=== PATIENT | female | born 1995 | race Caucasian/White ===

== ENCOUNTER 2021-04-27 12:08 | Outpatient (CLI) | payer OTHER, SELFPAY ==
--- NOTE | ~2021-04-27 | US_ITS ---
EXAMINATION: US pelvic complete w TV DATE: 04/27/2021 12:37 INDICATION: Irregular menses TECHNIQUE: Multiple transabdominal and endovaginal sonographic images of the pelvis were obtained. COMPARISON: None. FINDINGS: The uterus measures 8.5 x 4.2 x 5.0 cm. The endometrial complex measures 10 mm. The right o vary measures 3.3 x 2.6 x 1.8 cm. The left ovary measures 3.7 x 2.4 x 2.2 cm. There is normal vascula r flow in the ovaries. There is no free fluid in the pelvis. IMPRESSION: 1. No sonographic correlate for the patient's symptoms. Reviewed, dictated and finalized at location B.
== END 2021-04-27 12:09 | disposition home or self-care (01) ==
LOC: CHSIMG 12:11
PROVIDERS: PCP Family Medicine; Visit Provider Obstetrics & Gynecology
DX: N92.6 Irregular menstruation, unspecified (principal)
CPT/HCPCS: 76830; 76856

== ENCOUNTER 2022-01-25 19:01 | Outpatient (CLI) | payer OTHER, SELFPAY | END 2022-01-25 19:43 | disposition home or self-care (01) | PROVIDERS: PCP Family Medicine; Visit Provider Obstetrics & Gynecology | DX: O42.90 Premature rupture of membranes, unspecified as to length of time between rupture and onset of labor, unspecified weeks of gestation (principal); Z3A.00 Weeks of gestation of pregnancy not specified | CPT/HCPCS: 84112 ==

== ENCOUNTER 2022-02-03 12:30 | Inpatient (IN) | payer OTHER, SELFPAY ==
[2022-02-03] VITALS (61 sets, daily range): BP systolic 98–133; BP diastolic 53–76; PULSE 74–94; RESP 18; TEMP 36.6–37.1; O2SAT 98–100; BMI 36.9
--- NOTE | 2022-02-03 13:15 | LDADM ---
This patient, Kimberly Anderson, was admitted to Labor/Delivery/Recovery 105 on 02/03/22 at 12:30. Plans for labor, pain management and were discussed with patient. Patient/family oriented to hospital policies and general routines including ID bracelet, bed and alarms, visiting hours, pain management, procedures, bathroom and other care routines, personal items, smoking policy, room service/diet and guest tray routines, infant security routines, and visiting hours. Patient/Family are encouraged to report perceived risks to care and to ask questions if they do not understand what they are told or what they should do. See OBIX for further documentation.
[2022-02-03 13:36] LABS: Basophils Percent Auto 0.2 % (0.2-1.2); Eosinophils Absolute Auto 0.1 K/mm3 (0-0.3); Eosinophils Percent Auto 0.7 % (0-4.4); Hematocrit 36.6 % (37.0-47.0); Hemoglobin 11.8 g/dL (12.0-15.0); Immature Granulocyte Absolute 0.08 K/mm3 (0.00-0.031); Lymphocytes Absolute Auto 1.59 K/mm3 (0.9-3.2); Lymphocytes Percent Auto 19.6 % (18.3-44.2); Mean Corpuscular HGB Conc 32.2 g/dl (32-36); Mean Corpuscular Hemoglobin 27.6 pg (26-34); Mean Corpuscular Volume 85.5 fl (80-100); Mean Platelet Volume 12.1 fl (7.4-10.4); Monocytes Absolute Auto 0.5 K/mm3 (0.1-0.6); Monocytes Percent Auto 6.5 % (2.6-8.5); Neutrophils Absolute Auto 5.8 K/mm3 (1.3-6.7); Platelet Count Result 157 k/mm3 (150-375); Red Blood Count 4.28 M/mm3 (4.2-5.4); Red Cell Distribution Width 13.7 % (11.5-14.5); White Blood Count 8.1 K/mm3 (4.5-10.0)
[2022-02-03] MEDS: AMPICILLIN 2 GM/NS 100 ML 2 GM/100 ML BAG IVPB (13:37)
[2022-02-03] MEDS: LACTATED RINGERS 1,000 ML 125 ML IV CONT (13:37)
--- NOTE | 2022-02-03 13:53 | PM.IMHP ---
H&P: HPI History of Present Illness Date/Time: 02/03/22 13:53 Kimberly is a 26yo @ 39.0wks (DASHA 02/10/22) who presented to L&D with rupture of membranes, clear @ 0930. She is feeling good movements. No regular contractions. No VB. She has had regular care. Her is complicated by: - GBS positive - H/o FAVD due to persistent OP position w/ large sulcal lacerations - Obesity Chief Complaint: leakage of fluid Review of Systems Review of Systems: All systems reviewed & are unremarkable except as noted in HPI and below (HPI) [facility] Family History Family History Father Hypertension Diabetes mellitus Grandparent Diabetes mellitus Hypertension Grandparent Hypertension Social History Social History Substance use: never Spiritual care concerns: No Meds Home Medications and Allergies Home Medications Medication Instructions Recorded Confirmed Type vitamin PO DAILY 12/19/21 12/19/21 History aspirin 81 mg tablet,delayed 81 mg PO DAILY 12/19/21 12/19/21 History release Allergies Allergy/AdvReac Type Severity Reaction Status Date / Time No Known Allergies Allergy Verified 01/23/22 17:28 Vital Signs Vital Signs - 24 hr 02/03/22 13:26 Pulse Rate 87 Blood Pressure 127/67 Exam Const: General: cooperative, comfortable and no acute distress Nutritional Appearance: obese Resp: Effort & Inspection: normal respiratory effort Cardio: Rate: regular rate GI: GI Palp: No abdominal tenderness and Yes Soft to palpation : Other: FHT's: 140's/ mod asia/ + accels/ no decels - cat 1 TOCO: irritability Cervix: 4/60/-2 Membranes: SROM, clear 0930 Presentation: cephalic H&P: Results Labs Labs: Short CBC 02/03/22 Range/Units 13:24 WBC 8.1 (4.5-10.0) K/mm3 Hgb 11.8 L (12.0-15.0) g/dL Hct 36.6 L (37.0-47.0) % Plt Count 157 (150-375) k/mm3 Assessment and Plan Assessment and plan (1) Rupture of membranes with clear amniotic fluid: Status: Acute (2) : Qualifiers: Weeks of gestation: 39 weeks Qualified Code(s): Z3A.39 - 39 weeks gestation of Code(s): Z34.90 - Encounter for supervision of normal , unspecified, unspecified trimester Status: Acute Additional Plan - Admit to L&D due to ROM at term; will start pitocin augmentation for adequate contractions - Ampicillin for GBS ppx - Continuous monitoring; currently reassuring - Anesthesia consult PRN pain
[2022-02-03] MEDS: OXYTOCIN 30 UNITS/NS 500 ML 30 UNITS/500 ML BAG IV CONT (13:57)
--- NOTE | 2022-02-03 14:02 | WPDHPUPDATE1 ---
History and Physical Update Update Date/Time: 02/03/22 14:02 History and Physical has been reviewed, including an updated exam of the patient. There are NO changes in the patient's condition. Risks, benefits, and alternatives have been discussed and questions answered. Patient agrees to proceed with procedure.
[2022-02-03] MEDS: AMPICILLIN 1 GM/NS 50 ML 1 GM/50 ML BAG IVPB ×2 (17:26→21:33)
[2022-02-04] VITALS (105 sets, daily range): BP systolic 60–136; BP diastolic 26–72; PULSE 70–112; RESP 16; TEMP 36.4–37.3; O2SAT 97–100
[2022-02-04] MEDS: LACTATED RINGERS 1,000 ML 125 ML IV CONT ×2 (01:32→04:20)
[2022-02-04] MEDS: AMPICILLIN 1 GM/NS 50 ML 1 GM/50 ML BAG IVPB ×2 (01:33→06:15)
--- NOTE | 2022-02-04 03:08 | WPDANESEPP ---
Anes - Eval Pre Procedure Date/Time: 02/04/22 03:08 Pre Op Diagnosis: Rupture of Membranes Patient Data Age: 26 Gender: F Height: 1.75 m Weight: 113.5 kg Last Vital Signs Temp 98.3 F 02/04/22 01:29 Pulse 78 02/04/22 03:01 Resp 18 02/03/22 13:30 BP 133/65 02/04/22 03:01 Pulse Ox 98 02/03/22 20:59 Allergies Allergy/AdvReac Type Severity Reaction Status Date / Time No Known Allergies Allergy Verified 01/23/22 17:28 Home Medications Medication Instructions Recorded Confirmed Type aspirin 81 mg tablet,delayed 81 mg PO DAILY 12/19/21 02/03/22 History release PNV cmb#95-ferrous fumarate-FA 1 tablet PO DAILY 02/03/22 02/03/22 History [] Laboratory Tests 02/03/22 02/03/22 02/03/22 13:24 13:24 13:24 WBC 8.1 K/mm3 K/mm3 (4.5-10.0) RBC 4.28 M/mm3 M/mm3 (4.2-5.4) Hgb 11.8 g/dL L g/dL (12.0-15.0) Hct 36.6 % L % (37.0-47.0) MCV 85.5 fl fl (80-100) MCH 27.6 pg pg (26-34) MCHC 32.2 g/dl g/dl (32-36) RDW 13.7 % % (11.5-14.5) Plt Count 157 k/mm3 k/mm3 (150-375) MPV 12.1 fl H fl (7.4-10.4) Immature Gran % (Auto) 1.0 % H % (0-0.5) Neut % (Auto) 72.0 % % (45.5-73.1) Lymph % (Auto) 19.6 % % (18.3-44.2) [place] % (Auto) 6.5 % % (2.6-8.5) Eos % (Auto) 0.7 % % (0-4.4) Baso % (Auto) 0.2 % % (0.2-1.2) Lymph # (Auto) 1.59 K/mm3 K/mm3 (0.9-3.2) [place] # (Auto) 0.5 K/mm3 K/mm3 (0.1-0.6) Eos # (Auto) 0.1 K/mm3 K/mm3 (0-0.3) Baso # (Auto) 0.0 K/mm3 K/mm3 (0.0-0.1) Abs Immat Gran (auto) 0.08 K/mm3 H K/mm3 (0.00-0.031) Absolute Neuts (auto) 5.8 K/mm3 K/mm3 (1.3-6.7) Absolute Nucleated RBC 0.0 K/mm3 K/mm3 (0.0-0.012) Nucleated RBC % 0.0 % % (0.0-0.2) RPR Pending Blood Type B Positive Antibody Screen Negative Patient hx anesthesia problems: none Family hx anesthesia problems: none Results Review: All pre-operative results and documents have been reviewed as part of the pre-operative evaluation. [facility] Past Medical History Medical History Anemia Bipolar 1 disorder Morbid obesity Family History Family History Father Hypertension Diabetes mellitus Grandparent Diabetes mellitus Hypertension Grandparent Hypertension Social History Social History Smoking status: Never smoker Second hand tobacco smoke exposure: No Substance use: never Spiritual care concerns: No Exam Day of Procedure 02/04/22 03:08 Patient weight: super morbidly obese Heart: regular rate and rhythm Airway: Mallampati scale class II Neurological: alert and oriented
[2022-02-04] MEDS: OXYTOCIN 30 UNITS/NS 500 ML 30 UNITS/500 ML BAG 125 UNITS IV CONT (08:21)
--- NOTE | 2022-02-04 08:36 | P.PCNOB_ITS ---
OB - Delivery Note Procedure Delivery date: 02/04/22 Events: Positive Group B Strep (GBS) Intrapartal Events: Other (protracted labor) Delivery augmentation: Pitocin Delivery monitor: External FHT and Internal Uterine Route of delivery: Laceration Description: None Quantitative Blood Loss (ml): 200 Anesthesia type: Epidural Disposition: Floor Baby Date of : 02/04/22 Time of : 07:58 Weeks of gestation at delivery: 39 (.1) Infant gender: Female Weight (pounds): 7 Weight (ounces): 5 presentation: vertex position: Left Occiput Anterior Placenta delivery description: Expressed Cord Vessel Description: 3 Vessels, Clamped/Cut and Delayed Cord Clamping score one minute: 8 score five minutes: 9 Narrative: Kimberly progressed to complete dilation with strong desire to push. She pushed for approximately 2 contractions and delivered the head over intact perineum. Baby presented compound with the left hand by the face. She easily delivered the infant's shoulders and body without complication. The infant was immediately placed skin to skin and heads spontaneous cry. The mouth was bulb s uctioned. Delayed cord clamping was performed. The umbilical cord was then clamped and cut. A segment of the cord was collected for cord gases. The remaining cord blood was collected for typing. With Pitocin running and gentle downward traction on the cord, the placenta delivered without complications. A bimanual massage was performed and good uterine tone with minimal bleeding was noted. Patient was examined and no lacerations were identified. Sponge, lap, instrument, needle counts were correct at the end of the procedure. Mom and baby were left bonding in the birthing suite in a stable condition. [facility] Delivery Billing Delivery Delivery: Delivery Charge
[2022-02-04 08:51] LABS: Rapid Plasma Reagin Non-Reactive (NonReactive)
[2022-02-04] MEDS: WITCH HAZEL 40 PADS 1 PAD TOPICAL (10:24)
[2022-02-04] MEDS: MULTIVIT/MIN/PREN/FOL AC/IRON TABLET 1 TAB PO (11:19)
[2022-02-04] MEDS: IBUPROFEN 600 MG TABLET PO ×2 (11:19→20:04)
--- NOTE | 2022-02-04 11:22 | OBPPTRN ---
1050-Patient transferred to post room #286 via wheelchair and use of Blanca Steady. Support person present. Oriented to unit, room, information board, rooming in, admission packet and security measures. Patient verbalizes understanding.
--- NOTE | 2022-02-04 14:43 | PC.NURSE ---
[id number] Introductions were made and RN consulted with patient to assess needs related to . Mother led conversation with her experience with feeding baby so far and her desires are to pump and feed her at home. Mother works well with her infant and has baby skin to skin between her breasts. Reviewed good handwashing when working with infant, breast, nipples and how to protect the nipples with a deep latch. Encouraged understanding the benefits of skin to skin, responding to feeding cues, frequencies of feeding 8-12 times in 24 hours (approximately 2-3 hours), duration of feedings, milk production, intake/output feeding sheet and signs of adequate intake. Discussed stimulating infant with skin to skin, hand expressing colostrum, touch and talking to to encourage eating at the breast. Mother demonstrates information of hand expression. Infant is sleepy and not showing feeding cues. While was on mother RN syringe fed 2 ml of hand expressed human milk. Reviewed positioning and alignment, supporting breast, off-centered (asymmetrical latch) and leading with the chin with big open wide gape. Resources used to facilitate learning were used from the visual handout/mom and baby guide. Mother voiced understanding responding to feeding cues, may need to stimulating infant approximately 2-3 hours from the start of the last feeding, calling for assistance if the does not latch or there discomfort . Reported to primary RN.
[2022-02-05] VITALS: BP 122/64; PULSE 74; RESP 18; TEMP 36.6
[2022-02-05 03:00] VITALS: BP 124/56; PULSE 74; RESP 16; TEMP 36.6
[2022-02-05 04:51] LABS: Hematocrit 36.4 % (37.0-47.0); Hemoglobin 11.6 g/dL (12.0-15.0)
--- NOTE | 2022-02-05 07:01 | PM.OBPNVD ---
OB - PN: Subj Subjective Date/time seen: 02/05/22 07:01 Narrative: PPD#1 Kimberly reports doing well today. 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 Her pain is controlled, mild cramping with pumping. She is tolerating regular diet, voiding, passing gas, and ambulating without issues. She is breast feeding and supplementing. OB - PN: Obj Data Labs CBC & Chem 7: 02/05/22 04:03 Labs: Laboratory Results - last 24 hr 02/03/22 02/05/22 13:24 04:03 Hgb 11.6 L Hct 36.4 L RPR Non-reactive OB - PN A/P Assessment and Plan (1) Normal vaginal delivery of second : Code(s): O80 - Encounter for full-term uncomplicated delivery Status: Acute Plan day: 1 Plan: routine care and discharge home Comments: - Pelvic rest; take meds as prescribed - ER return precautions: fever, n/v/abd pain, bleeding, HTN Time Spent With Patient Time: Total time spent is greater than 50% in coordination of care (as documented) at patient's floor/unit and/or counseling patient: Review of Systems Constitutional: Constitutional: Denies chills, Denies fever(s) and Denies headache(s) Eyes: Eyes: Denies change in vision ENT: Denies dizziness and Denies headache(s) Cardiovascular: Cardiovascular: Denies chest pain, Denies palpitations and Denies dyspnea Respiratory: Respiratory: Denies cough and Denies dyspnea Gastrointestinal: Gastrointestinal: Denies nausea and Denies vomiting Neurologic: Denies dizziness and Denies headache(s) Endocrine: Endocrine: Denies palpitations Exam Const: General: cooperative, comfortable and no acute distress Nutritional Appearance: obese Orientation/consciousness: patient oriented x3 Resp: Effort & Inspection: normal respiratory effort Auscultation: clear to auscultation bilaterally Cardio: Rate: regular rate GI: Inspection: non-distended GI Palp: No abdominal tenderness and Yes Soft to palpation Auscultation: normal bowel sounds : Other: fundus firm Skin: General skin exam: normal color Neuro: General: patient oriented x3 Extrem: General: normal to inspection Psych: Appearance: grossly normal Affect: normal affect Attitude: cooperative
[2022-02-05] MEDS: WITCH HAZEL 40 PADS 1 PAD TOPICAL (07:26)
[2022-02-05] MEDS: BENZOCAINE 20% AER SPR (*SP) 56 GM CAN 1 SPRAY TOPICAL (07:26)
[2022-02-05] MEDS: DOCUSATE SODIUM 100 MG CAPSULE PO (07:27)
[2022-02-05] MEDS: MULTIVIT/MIN/PREN/FOL AC/IRON TABLET 1 TAB PO (07:27)
[2022-02-05] MEDS: IBUPROFEN 600 MG TABLET PO (07:27)
[2022-02-05] MEDS: LANOLIN (LANSINOH) 7.5 GM CREAM 1 APPLIC TOPICAL (07:27)
--- NOTE | 2022-02-05 07:32 | WPDANLDNPN2 ---
Anes-Prog Note L&D-Neuraxial Date/Time: 02/05/22 07:32 Patient feedback: Patient satisfied with post-operative pain management.
[2022-02-05 08:00] VITALS: BP 115/73; PULSE 68; RESP 18; TEMP 36.3
--- NOTE | 2022-02-05 08:49 | PC.NURSE ---
Self care and infant care discharge instructions given including follow up visit date and time. Mother verbalized understanding. No questions or concerns voiced. Very pleasant and cooperative. FOB at side.
--- NOTE | 2022-02-05 09:12 | PC.NURSE ---
0720 - Report received from primary RN that mother is pumping and feeding infant breastmilk and supplementing with formula.
[2022-02-06 11:25] VITALS: BP 133/77; PULSE 70; RESP 20; TEMP 37.1; O2SAT 100
--- NOTE | 2022-02-06 11:38 | PM.OBDSVD ---
DS: Admitting Diagnosis Discharge Date 02/05/22 Admitting Diagnosis PROM DS: Discharge Diagnosis Discharge Diagnosis (1) Normal vaginal delivery of second : Code(s): O80 - Encounter for full-term uncomplicated delivery Status: Acute (2) Rupture of membranes with clear amniotic fluid: Status: Acute OB - DS: Summary OB Procedures : Ultrasound OB Procedures Intrapartum: Spontaneous Vag Delivery OB Procedures: : None Peripartum Data Delivery Method: Natural Vaginal Laceration Description: None complications: none [place] 1: Gender: Female Disposition of : home Status at Discharge Functional status at discharge: independent ambulation Overall status at discharge: patient is back to baseline Time Spent with Patient Time attestation: Total time spent providing and/or coordinating discharge services: Time spent: Less than 30 minutes Exam Const: General: cooperative, comfortable and no acute distress Orientation/consciousness: patient oriented x3 Resp: Effort & Inspection: normal respiratory effort Auscultation: clear to auscultation bilaterally Cardio: Rate: regular rate GI: Inspection: non-distended GI Palp: No abdominal tenderness and Yes Soft to palpation Auscultation: normal bowel sounds : Other: fundus firm Skin: General skin exam: normal color Neuro: General: patient oriented x3 Extrem: General: normal to inspection Psych: Appearance: grossly normal Affect: normal affect Attitude: cooperative Discharge Plan Discharge Attending physician on discharge: Hina Granados Discharging Clinician: Hina Granados Anticipated Discharge Date/Time: 02/05/22 11:00 Patient Disposition: Home, Self-Care Activity: may shower and pelvic rest Diet: regular Discharge Instructions: Education: Mom and Baby Guide Given to: Mother Follow-Up: Call your delivering provider's office for an appointment to be seen in: 4 Weeks Mom and baby should come to the [facility] for the follow-up appointment. Appointment Date/Time: Sunday, February 06, 2022 at 11:00 am What to expect at your follow-up visit: Call [phone] if you are unable to keep your appointment time. BREAST CARE: * Wear a snug supportive bra. * For engorgement discomfort: Breast Feeding: * Apply warm moist washcloths * Express milk as needed to relieve engorgement * Wear loose clothing Bottle Feeding: * May apply ice packs * For sore nipples: * Identify correct latch-on * Apply warm moist washcloths before and after nursing * Air dry nipples after nursing * May apply Lansinoh cream to nipples EPISIOTOMY/PERINEAL CARE: * Until bleeding stops, use your lois bottle after urinating * Change your pad frequently throughout the day ACTIVITY: * Rest as much as possible. * Do not exercise or lift anything heavier than your baby (such as laundry or other children.) * Avoid stairs or driving as much as possible. * Do not put anything into the vagina. No douching, tampons, or sexual activity until seen by physician. NOTIFY PHYSICIAN IF YOU HAVE ANY QUESTIONS OR IF ANY OF THE FOLLOWING SYMPTOMS OCCUR: * If your vaginal bleeding becomes foul smelling. * If your vaginal bleeding becomes more heavy than a period or if your bleeding changes from pink to bright red. However, you may pass an occasional walnut-sized clot once or twice for the first week . * If you experience a sharp, shooting pain in you calves. * If you discover a hard, reddened area on your breast or if you experience flu-like symptoms. DIET: * Eat regular, well-balanced meals. * Drink plenty of fluids daily. If , drink to thirst. Patient Instructions: Antibiotic Form Stand Alone Forms: General Discharge Information Follow-up/Referrals
== END 2022-02-05 11:25 | disposition home or self-care (01) | DRG 560 ==
LOC: ANHLDR 12:56 → ANHOB2 02-04 11:02
PROVIDERS: Admitting Provider Obstetrics & Gynecology; PCP Family Medicine; Visit Provider Obstetrics & Gynecology
DX: O42.92 Full-term premature rupture of membranes, unspecified as to length of time between rupture and onset of labor (principal); Z37.0 Single live birth; Z3A.39 39 weeks gestation of pregnancy; O99.824 Streptococcus B carrier state complicating childbirth; O76 Abnormality in fetal heart rate and rhythm complicating labor and delivery; O99.214 Obesity complicating childbirth; E66.01 Morbid (severe) obesity due to excess calories
CPT/HCPCS: 36415; 84112; 85014; 85018; 85025; 86592; 86850; 86900; 86901; A9270; J0290; J2590; J2795; J7120

== ENCOUNTER 2023-09-02 08:25 | Emergency (ER) | payer OTHER, SELFPAY ==
[2023-09-02 08:27] VITALS: BP 119/59; PULSE 76; RESP 18; TEMP 36.9; O2SAT 100
[2023-09-02 09:01] LABS: Basophils Percent Auto 0.3 % (0.2-1.2); Eosinophils Absolute Auto 0.1 K/mm3 (0-0.3); Eosinophils Percent Auto 1.3 % (0-4.4); Hematocrit 40.6 % (37.0-47.0); Hemoglobin 13.3 g/dL (12.0-15.0); Immature Granulocyte Absolute 0.03 K/mm3 (0.00-0.031); Immature Granulocyte Percent A 0.4 % (0-0.5); Lymphocytes Absolute Auto 1.68 K/mm3 (0.9-3.2); Lymphocytes Percent Auto 22.1 % (18.3-44.2); Mean Corpuscular HGB Conc 32.8 g/dl (32-36); Mean Corpuscular Hemoglobin 27.6 pg (26-34); Mean Corpuscular Volume 84.2 fl (80-100); Mean Platelet Volume 11.7 fl (7.4-10.4); Monocytes Absolute Auto 0.4 K/mm3 (0.1-0.6); Monocytes Percent Auto 5.1 % (2.6-8.5); Neutrophils Absolute Auto 5.4 K/mm3 (1.3-6.7); Neutrophils Percent Auto 70.8 % (45.5-73.1); Platelet Count Result 169 k/mm3 (150-375); Red Blood Count 4.82 M/mm3 (4.2-5.4); Red Cell Distribution Width 13.8 % (11.5-14.5); White Blood Count 7.6 K/mm3 (4.5-10.0)
[2023-09-02 09:11] LABS: Anion Gap 7 mmol/L (8-16); Blood Urea Nitrogen 7 mg/dL (7-17); Calcium 8.9 mg/dL (8.4-10.2); Carbon Dioxide 20 mmol/L (22-30); Chloride 107 mmol/L (98-107); Estimated CRCL calculation 222 ml/min; Estimated Glomerular Filt Rate > 60; Glucose 90 mg/dL (65-110); Potassium 3.7 mmol/L (3.4-5.0); Sodium 134 mmol/L (137-145)
--- NOTE | 2023-09-02 09:49 | ED.PREGNANCY ---
HPI - General Chief complaint: Vaginal Bleeding Stated complaint: 14 wks preg, spotting Time Seen by Provider: 09/02/23 08:32 History of Present Illness HPI Narrative: Patient around 14 weeks , G3, P2, with confirmed IUP on ultrasound, presenting with vaginal bleeding and cramping, several days ago she had had some spotting, and resolved, then today started noticing some spotting when she wipes, she told her DESIGN AND SALES CONSULTANT who told her to come in. Related Data Home Medications Medication Instructions Recorded Confirmed vits no.126-ferrous fum tablet PO DAILY 07/15/23 08/13/23 28 mg iron-folic acid 800 mcg tablet (Classic ) Allergies Allergy/AdvReac Type Severity Reaction Status Date / Time No Known Allergies Allergy Verified 09/02/23 08:35 Review of Systems Review of Systems: CONST: No fever. HEENT: No sore throat C/V: No chest pain RESP: No trouble breathing GI: Lower abdominal cramping : Vaginal bleeding M/S: No joint pain. SKIN: No rash. NEURO: [No headache or focal numbness or weakness] PSYCH: [No depression] [facility] Past Medical History Medical History Anemia Bipolar 1 disorder Encounter for insertion of mirena IUD (06/04/22) mirena iud insertion Encounter for screening examination for sexually transmitted disease IUD migration removed Morbid obesity Family History Family History Father Hypertension Diabetes mellitus Grandparent Diabetes mellitus Hypertension Grandparent Hypertension Social History Social History Smoking status: Never smoker Second hand tobacco smoke exposure: No Alcohol intake: never Substance use: never Substance use type: does not use Lack of Transportation: No Lack of Food: Never True Current Housing: I Have Housing Concerned About Future Housing: No Difficulty Paying Gas/Electric Bills: No Difficulty Paying for Meds: No Currently Unemployed: No Education: High School Diploma/GED Difficulty w/ Childcare or Family Care: No Living arrangements: with family Occupation/Education: unemployed Gender identity (if verbalized by the patient): Female Sexual Orientation (if Verbalized by the Patient): Straight or Heterosexual Spiritual care concerns: No Exam Narrative: EXAMINATION OF ORGAN SYSTEMS/BODY AREAS: Constitutional: Vital signs per nursing GENERAL:[No acute distress, non-toxic appearing.] HEAD: Normal with no signs of head trauma. EYES: EOMI, conjunctiva normal ENT: Hearing grossly intact LUNGS: Nonlabored breathing. HEART: [Regular rate and rhythm] ABD: [Soft], [nontender to palpation] : Scant/no blood at vault EXT: Normal range of motion SKIN: [No rashes or lesions.] NEURO: [Alert and oriented x 3. No gross focal sensory or strength deficits.] PSYCH: Normal affect Course Vital Signs Vital signs: Vital Signs Temperature 98.5 F 09/02/23 08:27 Pulse Rate 76 09/02/23 08:27 Respiratory Rate 18 09/02/23 08:27 Blood Pressure 119/59 L 09/02/23 08:27 Pulse Oximetry 100 09/02/23 08:27 Temperature 98.5 F 09/02/23 08:27 Pulse Rate 73 09/02/23 10:00 Respiratory Rate 18 09/02/23 10:00 Blood Pressure 134/71 09/02/23 10:00 Pulse Oximetry 98 09/02/23 10:00 MDM - OB/Uterine Contractions MDM Narrative Medical decision making narrative: 27 G3, P2 presenting with cramping and bleeding, on exam she is well-appearing, no overt hemorrhage, I did perform a bedside ultrasound and noted intrauterine with heart rate 150. Rh+ here, beta quant obtained, strict return precautions provided to patient and she is stable for discharge at this time Lab Data 09/02/23 08:50 09/02/23 08:50 Labs: Lab Results 09/02/23 Range/Units
[2023-09-02 10:00] VITALS: BP 134/71; PULSE 73; RESP 18; O2SAT 98
== END 2023-09-02 10:01 | disposition home or self-care (01) ==
PROVIDERS: Emergency Provider Emergency Medicine; PCP Obstetrics & Gynecology
DX: O20.0 Threatened abortion (principal); O99.212 Obesity complicating pregnancy, second trimester; E66.01 Morbid (severe) obesity due to excess calories; Z86.2 Personal history of diseases of the blood and blood-forming organs and certain disorders involving the immune mechanism; Z3A.14 14 weeks gestation of pregnancy
CPT/HCPCS: 36415; 80048; 84702; 85025; 85461; 86850; 86900; 86901; 99284

== ENCOUNTER 2024-01-09 17:22 | Observation (INO) | payer OTHER, SELFPAY ==
[2024-01-09] VITALS (85 sets, daily range): BP systolic 114–154; BP diastolic 50–80; PULSE 76–104; O2SAT 96–100; BMI 38.7
--- NOTE | ~2024-01-09 | US_ITS ---
EXAMINATION: US OB limited DATE: 01/09/2024 19:12 INDICATION: Fall. Third trimester. TECHNIQUE: Real-time ultrasound of the pelvis was performed. COMPARISON: Ultrasound 09/03/2023 FINDINGS: There is a single fetus in vertex presentation. The placenta is fundal. heart rate is 142 beat s per minute (bpm). The amniotic fluid index is 14.8 cm, which is normal. IMPRESSION: 1. Single living fetus in vertex presentation. 2. Normal placenta. Reviewed, dictated and finalized at location E. NT MANAGER
[2024-01-09] MEDS: TERBUTALINE SULFATE 1 MG/ML VIAL 0.25 MG SUB-Q (18:23)
--- NOTE | 2024-01-09 18:29 | LDADM ---
This patient, Kimberly Anderson, was admitted to OB Post 117 on 01/09/24 at 17:22. Plans for labor, pain management and were discussed with patient. Patient/family oriented to hospital policies and general routines including ID bracelet, bed and alarms, visiting hours, pain management, procedures, bathroom and other care routines, personal items, smoking policy, room service/diet and guest tray routines, infant security routines, and visiting hours. Patient/Family are encouraged to report perceived risks to care and to ask questions if they do not understand what they are told or what they should do. See OBIX for further documentation.
--- NOTE | 2024-01-09 18:29 | PC.NURSE ---
1803--Report to Dr. Watters re: Pt. fell at approx. 1400, landed on her bottom, but was holding her 3 y.o. who landed on pt's abdomen. Pt. denies vaginal bleeding and states she has felt movement since her fall. She states that she did have a small wet spot on her panties that may have been fluid or urine, she's not sure . Upon exam abdomen is soft and non-tender, but pt. is delroy every 2 minutes. Pt. states that she is feeling them in her back. Pt's blood type is B+ and BP also reported to Dr. Watters. Orders received for FFN, Rom plus, gentle cervical exam, u/s for placenta check, and labwork for PIH and abruption.
--- NOTE | 2024-01-09 18:35 | PC.NURSE ---
181--Report to Sagar Becerra RN to assume care of pt. at this time.
[2024-01-09 19:14] LABS: Basophils Percent Auto 0.1 % (0.2-1.2); Eosinophils Absolute Auto 0.1 K/mm3 (0-0.3); Eosinophils Percent Auto 0.7 % (0-4.4); Hematocrit 38.6 % (37.0-47.0); Hemoglobin 11.9 g/dL (12.0-15.0); Immature Granulocyte Absolute 0.07 K/mm3 (0.00-0.031); Immature Granulocyte Percent A 0.9 % (0-0.5); Mean Corpuscular HGB Conc 30.8 g/dl (32-36); Mean Corpuscular Hemoglobin 25.3 pg (26-34); Mean Corpuscular Volume 82.1 fl (80-100); Mean Platelet Volume 11.9 fl (7.4-10.4); Monocytes Absolute Auto 0.5 K/mm3 (0.1-0.6); Monocytes Percent Auto 6.5 % (2.6-8.5); Neutrophils Absolute Auto 5.3 K/mm3 (1.3-6.7); Neutrophils Percent Auto 64.8 % (45.5-73.1); Platelet Count Result 165 k/mm3 (150-375); Red Cell Distribution Width 16.9 % (11.5-14.5); White Blood Count 8.1 K/mm3 (4.5-10.0)
[2024-01-09 19:24] LABS: Alanine Aminotransferase 13 U/L (6-35); Albumin Level 3.3 g/dL (3.5-5.1); Alkaline Phosphatase 116 U/L (38-126); Anion Gap 8 mmol/L (8-16); Aspartate Amino Transferase 23 U/L (14-36); Bilirubin,Total 0.5 mg/dL (0.2-1.3); Blood Urea Nitrogen 7 mg/dL (7-17); Carbon Dioxide 19 mmol/L (22-30); Chloride 106 mmol/L (98-107); Estimated Glomerular Filt Rate > 60; Glucose 91 mg/dL (65-110); Potassium 3.1 mmol/L (3.4-5.0); Sodium 133 mmol/L (137-145); Uric Acid 2.2 mg/dL (2.5-7.5)
--- NOTE | 2024-01-09 19:26 | OBADM ---
This patient, Kimberly Anderson, admitted to the OB room OB Post 117 for observation. Patient/family oriented to hospital policies and general routines including ID bracelet, bed and alarms, visiting hours, pain management, procedures, bathroom and other care routines, personal items, smoking policy, room service/diet, and visiting hours. Patient/Family are encouraged to report perceived risks to care and to ask questions if they do not understand what they are told or what they should do.
--- NOTE | 2024-01-09 19:28 | PC.NURSE ---
Updated Dr. Watters on ultrasound report, SVE thick with 2 external OS with closed internal OS, negative ROM plus result, and HIP lab results. Other lab results still pending. VSS. No contractions are noted via TOCO and palpation and patient is reports contractions have resolved. FHT reactive and appropriate for gestational age with active movement present. Order to continue monitoring until 2300.
[2024-01-09 19:30] LABS: Fibrinogen 466 mg/dl (215-510); INR 1.1; Partial Thromboplastin Time 28.3 SECONDS (22.3-36.8); Prothrombin Time 14.3 Seconds (11.1-14.7)
[2024-01-09 19:46] LABS: Fetal Fibronectin Positive
[2024-01-09 20:19] LABS: Appearance Urine Cloudy (Clear); Bacteria Urine None Seen /hpf; Bilirubin Urine Negative (Negative); Blood Urine Negative (Negative); Color Urine Yellow (Yellow); Glucose Urine UA Negative (Negative); Ketones Urine 2+ mg/dL (Negative); Leukocyte Esterase Ur Trace LEU/UL (Negative); Need Manual Microscopic Reviewed; Nitrate Urine Negative (Negative); Non Pathogenic Casts 0-2; Protein Urine Negative (Negative); RBC Urine 0-2 /hpf (0-2); Specific Grav Ur 1.006 (1.001-1.035); Squamous Epithelial Cell Urine Occasional /hpf (Few); Urobilinogen Urine 0.2 mg/dL (<2.0); WBC Urine 0-5 /hpf
[2024-01-09 20:21] LABS: Add Urine Microscopic? YES
[2024-01-09 20:25] LABS: Creatinine Urine 30.1 mg/dL; Total Protein Urine Random 13 mg/dL; Ur Ttl Prot Creatinine Ratio 0.43 mg/mg (0-0.20)
[2024-01-09] MEDS: NIFEdipine 10 MG CAPSULE PO (20:57)
[2024-01-09] MEDS: DEXTROSE 5%/LACTATED RINGERS 1,000 ML 999 ML IV CONT (20:58)
[2024-01-10] VITALS: BP 128/56; PULSE 82; PULSE 88; O2SAT 97
[2024-01-10 00:05] VITALS: PULSE 87; O2SAT 96
--- NOTE | 2024-02-09 11:47 | P.PNOB_ITS ---
OB - Triage/Final Diagnosis Visit Information Comments/Additional reasons for admission: I have assessed the risk for this patient, Kimberly Anderson, and determined that she would benefit from observation care. Evaluation Laboratory results: Laboratory Tests 01/09/24 01/09/24 18:28 19:59 WBC 8.1 RBC 4.70 Hgb 11.9 L Hct 38.6 MCV 82.1 MCH 25.3 L MCHC 30.8 L RDW 16.9 H Plt Count 165 MPV 11.9 H Immature Gran % (Auto) 0.9 H Neut % (Auto) 64.8 Lymph % (Auto) 27.0 [place] % (Auto) 6.5 Eos % (Auto) 0.7 Baso % (Auto) 0.1 L Lymph # (Auto) 2.20 [place] # (Auto) 0.5 Eos # (Auto) 0.1 Baso # (Auto) 0.0 Abs Immat Gran (auto) 0.07 H Absolute Neuts (auto) 5.3 Absolute Nucleated RBC 0.0 Nucleated RBC % 0.0 PT 14.3 INR 1.1 APTT 28.3 Fibrinogen 466 Sodium 133 L Potassium 3.1 L Chloride 106 Carbon Dioxide 19 L Anion Gap 8 BUN 7 Creatinine 0.40 L Estim Creat Clear Calc Not Reportable Estimated GFR > 60 Glucose 91 Uric Acid 2.2 L Calcium 9.0 Total Bilirubin 0.5 AST 23 ALT 13 Alkaline Phosphatase 116 Total Protein 7.0 Albumin 3.3 L Urine Color Yellow Urine Appearance Cloudy H Urine pH 6.0 Ur Specific [place] 1.006 Urine Protein Negative Urine Glucose (UA) Negative Urine Ketones 2+ H Ur Blood (Man) Negative Urine Nitrate Negative Urine Bilirubin Negative Urine Urobilinogen 0.2 Add Ur Microanalysis Reviewed Leukocyte Esterase Rfl Trace H Urine RBC 0-2 Urine WBC 0-5 Ur Squamous Epith Cells Occasional Urine Bacteria None seen Urine Casts 0-2 U Random Total Protein 13 Urine Creatinine 30.1 Protein/Creat Ratio 2 0.43 H Fibronectin Positive KB Hemoglobin Negative Final Diagnosis (1) Status post fall: Code(s): Z91.81 - History of falling Status: Acute
== END 2024-01-10 00:26 | disposition home or self-care (01) ==
PROVIDERS: Admitting Provider Obstetrics & Gynecology; PCP Family Medicine; Visit Provider Obstetrics & Gynecology
DX: Z04.3 Encounter for examination and observation following other accident (principal); O26.893 Other specified pregnancy related conditions, third trimester; W19.XXXA Unspecified fall, initial encounter; Z3A.32 32 weeks gestation of pregnancy
CPT/HCPCS: 36415; 76815; 80053; 81001; 82570; 82731; 84156; 84550; 85025; 85384; 85460; 85610; 85730; 96372; A9270; G0378; G0379; J3105; J7121

== ENCOUNTER 2024-01-11 23:55 | Outpatient (NON) | payer OTHER, SELFPAY ==
[2024-01-11 00:10] VITALS: BMI 38.7
[2024-01-11 01:56] LABS: Total Volume 24 Hour Urine 2500 ml
[2024-01-11 02:04] LABS: Creatinine Urine 75.1 mg/dL
[2024-01-11 02:07] LABS: Total Protein Urine 24 Hr 275 mg/24hr (28-141); Total Protein Urine Random 11 mg/dL
[2024-01-11 02:11] LABS: Creatinine 24 Hour Urine 1.8 gm/24 (0.8-1.8); Total Volume 24 Hour Urine 2500 ml
== END 2024-01-11 23:57 | disposition home or self-care (01) ==
LOC: ANHOBOP 01-23 12:49
PROVIDERS: Obstetrics & Gynecology; PCP Family Medicine; Visit Provider Obstetrics & Gynecology
DX: O13.9 Gestational [pregnancy-induced] hypertension without significant proteinuria, unspecified trimester (principal); Z3A.00 Weeks of gestation of pregnancy not specified
CPT/HCPCS: 81050; 82570; 84156

== ENCOUNTER 2024-02-06 16:11 | Outpatient (CLI) | payer OTHER, SELFPAY ==
[2024-02-06] VITALS (7 sets, daily range): BP systolic 134–148; BP diastolic 64–77; PULSE 86–97
[2024-02-06 17:05] LABS: Basophils Percent Auto 0.3 % (0.2-1.2); Eosinophils Absolute Auto 0.1 K/mm3 (0-0.3); Eosinophils Percent Auto 0.7 % (0-4.4); Hematocrit 37.5 % (37.0-47.0); Hemoglobin 11.6 g/dL (12.0-15.0); Immature Granulocyte Absolute 0.03 K/mm3 (0.00-0.031); Immature Granulocyte Percent A 0.4 % (0-0.5); Lymphocytes Absolute Auto 1.53 K/mm3 (0.9-3.2); Lymphocytes Percent Auto 21.2 % (18.3-44.2); Mean Corpuscular HGB Conc 30.9 g/dl (32-36); Mean Corpuscular Volume 80.8 fl (80-100); Mean Platelet Volume 12.2 fl (7.4-10.4); Monocytes Absolute Auto 0.4 K/mm3 (0.1-0.6); Monocytes Percent Auto 5.3 % (2.6-8.5); Neutrophils Absolute Auto 5.2 K/mm3 (1.3-6.7); Neutrophils Percent Auto 72.1 % (45.5-73.1); Platelet Count Result 182 k/mm3 (150-375); Red Blood Count 4.64 M/mm3 (4.2-5.4); Red Cell Distribution Width 16.3 % (11.5-14.5); White Blood Count 7.2 K/mm3 (4.5-10.0)
[2024-02-06 17:09] LABS: Appearance Urine Cloudy (Clear); Bacteria Urine 4+ /hpf; Bilirubin Urine Negative (Negative); Blood Urine Negative (Negative); Color Urine Yellow (Yellow); Glucose Urine UA 1+ mg/dL (Negative); Ketones Urine 1+ mg/dL (Negative); Leukocyte Esterase Ur 1+ LEU/UL (Negative); Nitrate Urine Negative (Negative); Non Pathogenic Casts 0-2; Protein Urine Negative (Negative); RBC Urine 0-2 /hpf (0-2); Specific Grav Ur 1.014 (1.001-1.035); Squamous Epithelial Cell Urine Many /hpf (Few); Urobilinogen Urine 0.2 mg/dL (<2.0); WBC Urine 51-100 /hpf; pH Urine 5.5 (5.0-9.0)
[2024-02-06 17:21] LABS: Alanine Aminotransferase 14 U/L (6-35); Albumin Level 3.3 g/dL (3.5-5.1); Alkaline Phosphatase 143 U/L (38-126); Anion Gap 6 mmol/L (8-16); Aspartate Amino Transferase 20 U/L (14-36); Bilirubin,Total 0.5 mg/dL (0.2-1.3); Blood Urea Nitrogen 6 mg/dL (7-17); Calcium 8.6 mg/dL (8.4-10.2); Carbon Dioxide 17 mmol/L (22-30); Chloride 108 mmol/L (98-107); Estimated Glomerular Filt Rate > 60; Glucose 143 mg/dL (65-110); Potassium 3.3 mmol/L (3.4-5.0); Sodium 131 mmol/L (137-145); Total Protein Urine Random 9 mg/dL; Uric Acid 2.1 mg/dL (2.5-7.5)
--- NOTE | 2024-02-06 17:28 | PC.NURSE ---
1728: RN phoned rn interventional OB Dr. Watters to inform her that the patient was sent over from the [facility] office for high blood pressures. RN reported blood pressures, as well as labs results. Orders to call back with a PC ratio and start a 24 hour urine.
[2024-02-06 17:31] LABS: Add Urine Microscopic? YES; Creatinine Urine 55.4 mg/dL; Ur Ttl Prot Creatinine Ratio 0.16 mg/mg (0-0.20)
--- NOTE | 2024-02-06 17:38 | PC.NURSE ---
9608: RN phoned Dr. Watters to inform her of lab results. Orders to collect a 24 hour urine and discharge patient home with pre-eclampsia precautions.
== END 2024-02-06 17:57 | disposition home or self-care (01) ==
LOC: ANHOBOP 16:21 → ANHOBPP 16:23
PROVIDERS: Obstetrics & Gynecology; PCP Family Medicine; Visit Provider Obstetrics & Gynecology
DX: O24.419 Gestational diabetes mellitus in pregnancy, unspecified control (principal); Z3A.00 Weeks of gestation of pregnancy not specified
CPT/HCPCS: 36415; 59025; 80053; 81001; 82570; 84156; 84550; 85025; 87086; 99199

== ENCOUNTER 2024-02-07 14:23 | Outpatient (RCR) | payer OTHER, SELFPAY ==
[2024-01-13 10:53] VITALS: BP 116/57; PULSE 84
[2024-01-17 13:25] VITALS: BP 130/61; PULSE 82
[2024-01-21 12:52] VITALS: BP 124/62; PULSE 94
[2024-01-24 09:17] LABS: Basophils Percent Auto 0.1 % (0.2-1.2); Eosinophils Absolute Auto 0.1 K/mm3 (0-0.3); Hematocrit 36.4 % (37.0-47.0); Hemoglobin 11.3 g/dL (12.0-15.0); Immature Granulocyte Absolute 0.06 K/mm3 (0.00-0.031); Immature Granulocyte Percent A 0.8 % (0-0.5); Lymphocytes Absolute Auto 1.19 K/mm3 (0.9-3.2); Lymphocytes Percent Auto 16.6 % (18.3-44.2); Mean Corpuscular Hemoglobin 25.5 pg (26-34); Mean Platelet Volume 12.3 fl (7.4-10.4); Monocytes Absolute Auto 0.4 K/mm3 (0.1-0.6); Monocytes Percent Auto 5.9 % (2.6-8.5); Neutrophils Absolute Auto 5.4 K/mm3 (1.3-6.7); Neutrophils Percent Auto 75.6 % (45.5-73.1); Platelet Count Result 170 k/mm3 (150-375); Red Blood Count 4.44 M/mm3 (4.2-5.4); Red Cell Distribution Width 16.7 % (11.5-14.5); White Blood Count 7.2 K/mm3 (4.5-10.0)
[2024-01-24 10:07] LABS: Alanine Aminotransferase 14 U/L (6-35); Albumin Level 3.1 g/dL (3.5-5.1); Alkaline Phosphatase 114 U/L (38-126); Anion Gap 7 mmol/L (8-16); Aspartate Amino Transferase 17 U/L (14-36); Bilirubin,Total 0.3 mg/dL (0.2-1.3); Blood Urea Nitrogen 8 mg/dL (7-17); Calcium 8.7 mg/dL (8.4-10.2); Carbon Dioxide 18 mmol/L (22-30); Chloride 107 mmol/L (98-107); Estimated Glomerular Filt Rate > 60; Glucose 113 mg/dL (65-110); Lactate Dehydrogenase 180 U/L (120-246); Potassium 3.7 mmol/L (3.4-5.0); Sodium 132 mmol/L (137-145); Uric Acid 2.1 mg/dL (2.5-7.5)
[2024-01-24 10:18] VITALS: BP 105/45; PULSE 91
[2024-01-31 11:54] VITALS: BP 109/52; PULSE 81
--- NOTE | ~2024-02-07 | US_ITS ---
EXAMINATION: US OB limited w BPP DATE: 01/31/2024 13:09 INDICATION: Hypertension. Third trimester. TECHNIQUE: Real-time pelvic ultrasound was performed. COMPARISON: Ultrasound 01/24/2024 FINDINGS: There is a single living fetus in vertex presentation. The placenta is fundal. heart rate is 1 45 beats per minute (bpm). The amniotic fluid index is 16.1 cm, which is normal. Biophysical profile performed by the technologist: breathing (30 sec sustained breathing in 30 minutes): 2 out of 2 movement (3 gross body movements in 30 minutes): 2 out of 2 tone (one episode of srkmycg-xjnzelaom-vfamnfa limb movement): 2 out of 2 Amniotic fluid pocket (2 cm): 2 out of 2 Total score: 8 out of 8 IMPRESSION: 1. Single living fetus in vertex presentation. 2. Biophysical profile 8 out of 8. Reviewed, dictated and finalized at location A. GER OF CASE
--- NOTE | ~2024-02-07 | US_ITS ---
EXAMINATION: US OB BPP wo non-stress DATE: 01/24/2024 10:55 INDICATION: -induced hypertension TECHNIQUE: Real-time pelvic ultrasound was performed. The interpreting radiologist was not present fo r the study. COMPARISON: None. FINDINGS: There is a single living fetus in vertex presentation. The placenta is fundal. cardiac activit y and movement are demonstrated. heart rate is 141 beats per minute (bpm). Biophysical profile performed by the technologist: breathing (30 sec sustained breathing in 30 minutes): 2 out of 2 movement (3 gross body movements in 30 minutes): 2 out of 2 tone (one episode of yunbdrb-ogzbiyzpj-vtldewl limb movement): 2 out of 2 Amniotic fluid pocket (2 cm): 2 out of 2 Total score: 8 out of 8 IMPRESSION: 1. Single living intrauterine in vertex presentation with heart rate of 141 bpm. 2. Normal placenta. 3. Biophysical profile 8 out of 8. Reviewed, dictated and finalized at location A. ING MACHINE OPERATOR
--- NOTE | ~2024-02-07 | US_ITS ---
EXAMINATION: US OB BPP wo non-stress DATE: 01/21/2024 13:29 INDICATION: Fall during third trimester TECHNIQUE: Real-time pelvic ultrasound was performed. The interpreting radiologist was not present fo r the study. COMPARISON: None. FINDINGS: There is a single living fetus in vertex presentation. The placenta is anterior/fundal. heart r ate is 142 beats per minute (bpm). Dielectric Tester questions the possibility of hand malformation o n the provided images are not definitive for evaluation. Biophysical profile performed by the technologist: breathing (30 sec sustained breathing in 30 minutes): 2 out of 2 movement (3 gross body movements in 30 minutes): 2 out of 2 tone (one episode of wmfnktj-fmsvxsfqd-sjtzrte limb movement): 2 out of 2 Amniotic fluid pocket (2 cm): 2 out of 2 Total score: 8 out of 8 IMPRESSION: 1. Single living fetus in vertex presentation. 2. Biophysical profile 8 out of 8. 3. Grossly normal placenta without evidence of previa or abruption. However, acute hemorrhage can be isoechoic to the placenta. Recommend continued clinical followup. 4. Dielectric Tester questions possibility of hands malformation however provided images are not defi nitive for evaluation. Consider ultrasound follow-up. Reviewed, dictated and finalized at location B. SSEMBLER AND INSPECTOR IMPRESSION: 1. Single living fetus in vertex presentation. 2. Biophysical profile 8 out of 8. 3. Grossly normal placenta without evidence of previa or abruption. However, a cute hemorrhage can be isoechoic to the placenta. Recommend continued clinical followup. 4. Dielectric Tester questions possibility of hands malformation however provid ed images are not definitive for evaluation. Consider ultrasound follow-up.
[2024-02-07 15:07] VITALS: BP 120/67; PULSE 81
== END 2024-04-12 23:59 | disposition home or self-care (01) ==
LOC: ANHOBOP 14:23
PROVIDERS: PCP Family Medicine; Visit Provider Obstetrics & Gynecology
DX: O26.893 Other specified pregnancy related conditions, third trimester (principal); R03.0 Elevated blood-pressure reading, without diagnosis of hypertension; Z3A.33 33 weeks gestation of pregnancy; Z3A.34 34 weeks gestation of pregnancy; Z3A.35 35 weeks gestation of pregnancy; Z3A.36 36 weeks gestation of pregnancy
CPT/HCPCS: 36415; 59025; 76815; 76819; 80053; 83615; 84550; 85025

== ENCOUNTER 2024-02-07 19:10 | Outpatient (NON) | payer OTHER, SELFPAY ==
[2024-02-09 08:24] LABS: Collection Time Urine 24 HOURS
[2024-02-09 08:30] LABS: Total Protein Urine Random 11 mg/dL
[2024-02-09 08:31] LABS: Creatinine Urine 88.2 mg/dL
[2024-02-09 08:35] LABS: Total Protein Urine 24 Hr 209 mg/24hr (28-141); Total Volume 24 Hour Urine 1900 ml
[2024-02-09 08:36] LABS: Creatinine Clearance Urine 215.2 ml/min (75-125); Patient Weight 270 Lbs; Serum Creat 0.4
== END 2024-02-07 19:11 | disposition home or self-care (01) ==
LOC: ANHOBOP 19:39
PROVIDERS: PCP Family Medicine; Visit Provider Obstetrics & Gynecology
DX: Z34.90 Encounter for supervision of normal pregnancy, unspecified, unspecified trimester (principal); Z3A.00 Weeks of gestation of pregnancy not specified
CPT/HCPCS: 81050; 82575; 84156

== ENCOUNTER 2024-02-09 05:52 | Inpatient (IN) | payer OTHER, SELFPAY ==
[2024-02-09] VITALS (188 sets, daily range): BP systolic 103–148; BP diastolic 40–80; PULSE 65–124; TEMP 36.4–37.1; O2SAT 94–100; BMI 40.0
--- NOTE | 2024-02-09 05:52 | LDADM ---
This patient, Kimberly Anderson, was admitted to Labor/Delivery/Recovery 104 on 02/09/24 at 05:52. Plans for labor, pain management and were discussed with patient. Patient/family oriented to hospital policies and general routines including ID bracelet, bed and alarms, visiting hours, pain management, procedures, bathroom and other care routines, personal items, smoking policy, room service/diet and guest tray routines, infant security routines, and visiting hours. Patient/Family are encouraged to report perceived risks to care and to ask questions if they do not understand what they are told or what they should do. See OBIX for further documentation.
[2024-02-09 06:30] LABS: Basophils Percent Auto 0.2 % (0.2-1.2); Eosinophils Absolute Auto 0.1 K/mm3 (0-0.3); Eosinophils Percent Auto 0.8 % (0-4.4); Hematocrit 35.1 % (37.0-47.0); Hemoglobin 11.2 g/dL (12.0-15.0); Immature Granulocyte Absolute 0.03 K/mm3 (0.00-0.031); Immature Granulocyte Percent A 0.5 % (0-0.5); Lymphocytes Percent Auto 22.5 % (18.3-44.2); Mean Corpuscular HGB Conc 31.9 g/dl (32-36); Mean Corpuscular Hemoglobin 25.2 pg (26-34); Mean Corpuscular Volume 78.9 fl (80-100); Mean Platelet Volume 11.7 fl (7.4-10.4); Monocytes Absolute Auto 0.4 K/mm3 (0.1-0.6); Monocytes Percent Auto 7.1 % (2.6-8.5); Neutrophils Absolute Auto 4.3 K/mm3 (1.3-6.7); Neutrophils Percent Auto 68.9 % (45.5-73.1); Platelet Count Result 166 k/mm3 (150-375); Red Blood Count 4.45 M/mm3 (4.2-5.4); Red Cell Distribution Width 15.9 % (11.5-14.5); White Blood Count 6.2 K/mm3 (4.5-10.0)
[2024-02-09 06:43] LABS: Alanine Aminotransferase 14 U/L (6-35); Albumin Level 3.3 g/dL (3.5-5.1); Alkaline Phosphatase 141 U/L (38-126); Anion Gap 8 mmol/L (8-16); Aspartate Amino Transferase 21 U/L (14-36); Bilirubin,Total 0.5 mg/dL (0.2-1.3); Blood Urea Nitrogen 8 mg/dL (7-17); Calcium 8.8 mg/dL (8.4-10.2); Carbon Dioxide 18 mmol/L (22-30); Chloride 108 mmol/L (98-107); Estimated CRCL calculation 241 ml/min; Estimated Glomerular Filt Rate > 60; Glucose 109 mg/dL (65-110); Potassium 3.2 mmol/L (3.4-5.0); Sodium 134 mmol/L (137-145); Uric Acid 3.1 mg/dL (2.5-7.5)
[2024-02-09] MEDS: AMPICILLIN 2 GM/NS 100 ML 2 GM/100 ML BAG IVPB (06:44)
[2024-02-09] MEDS: LACTATED RINGERS 1,000 ML 125 ML IV CONT ×2 (06:44→13:39)
--- NOTE | 2024-02-09 06:44 | P.HP_ITS ---
H&P: HPI History of Present Illness Date/Time: 02/09/24 06:44 Chief Complaint: Induction of labor Narrative: Kimberly is a 28yo @ 37.1wks who presents for IOL due to GHTN. She has been undergoing ANT. She reports good movement. Irregular ctx's. No VB or LOF. No CID, vision changes, CP or SOB Her is complicated by: - H/o FAVD (first delivery) due to persistent OP position w/ large sulcal lacerations - Obesity; on ASA - Daughter with STXBP1 disorder (parents are not carriers) - Varicella non-immune -?HSV- on ppx since 36w - GBS in URINE - GHTN Review of Systems Constitutional: Constitutional: Denies chills, Denies fever(s) and Denies headache(s) Eyes: Eyes: Denies change in vision ENT: Denies headache(s) Cardiovascular: Cardiovascular: Denies chest pain and Denies dyspnea Respiratory: Respiratory: Denies dyspnea Genitourinary: Genitourinary: Denies abnormal vaginal bleeding and Denies vaginal discharge Neurologic: Denies headache(s) Psychiatric: Psychiatric: Denies anxiety and Denies depression [facility] Past Medical History Medical History Anemia Bipolar 1 disorder Encounter for insertion of mirena IUD (06/04/22) mirena iud insertion Encounter for screening examination for sexually transmitted disease IUD migration removed Morbid obesity Family History Family History Father Hypertension Diabetes mellitus Grandparent Diabetes mellitus Hypertension Grandparent Hypertension Social History Social History Years smoked: 5 Smoking status: Former smoker Second hand tobacco smoke exposure: No Alcohol intake: never Substance use: never Substance use type: does not use Do You Feel Safe in your Home?: Yes Lack of Transportation: No Lack of Food: Never True Current Housing: I Have Housing Concerned About Future Housing: No Difficulty Paying Gas/Electric Bills: No Difficulty Paying for Meds: No Currently Unemployed: No Education: High School Diploma/GED Difficulty w/ Childcare or Family Care: No Living arrangements: with family Occupation/Education: unemployed Gender identity (if verbalized by the patient): Female Sexual Orientation (if Verbalized by the Patient): Straight or Heterosexual Spiritual care concerns: No Meds Home Medications and Allergies Home Medications Medication Instructions Recorded Confirmed Type vits no.126-ferrous fum 1 tablet PO DAILY 07/15/23 02/04/24 History 28 mg iron-folic acid 800 mcg tablet (Classic ) aspirin 81 mg tablet,delayed 81 mg PO DAILY 09/17/23 02/04/24 History release ferrous sulfate 325 mg (65 mg 325 mg PO DAILY 12/10/23 02/04/24 History iron) tablet valacyclovir 500 mg tablet 500 mg PO Q12H #90 tabs 01/21/24 02/04/24 Rx (Valtrex) Allergies Allergy/AdvReac Type Severity Reaction Status Date / Time No Known Allergies Allergy Verified 02/04/24 13:56 Vital Signs Vital Signs - 24 hr 02/09/24 06:15 02/09/24 06:35 Pulse Rate 97 Blood Pressure 136/76 Pulse Oximetry 98 Exam Const: General: cooperative, comfortable, no acute distress and obese Nutritional Appearance: obese Orientation/consciousness: patient oriented x3 Resp: Effort & Inspection: normal respiratory effort Cardio: Rate: regular rate GI: GI Palp: No abdominal tenderness : Other: FHT's: 140's/ mod asia/ + accels/ no decels - cat 1 TOCO: irregular ctxs Cervix:1.5/50/high Membranes: intact Presentation: cephalic Skin: General skin exam: normal color Neuro: General: patient oriented x3 Extrem: General: normal to inspection Psych: Appearance: grossly normal Affect: normal affect Attitude: cooperative H&P: Results Labs Labs: Short CBC 02/09/24 Range/Units 06:19 WBC 6.2 (4.5-10.0) K/mm3 Hgb 11.2 L (12.0-15.0) g/dL Hct 35.1 L (37.0-47.0) % Plt Count 166 (150-375) k/mm3 BMP 02/09/24 06:22 Sodium 134 L Potassium 3.2 L Chloride 108 H Carbon Dioxide 18 L BUN 8 Creatinine 0.40 L Glucose 109 Calcium 8.8 Liver Function 02/09/24 Range/Units 06:22 Total Bilirubin 0.5 (0.2-1.3) mg/dL AST 21 (14-36) U/L ALT 14 (6-35) U/L Alkaline Phosphatase 141 H (38-126) U/L Albumin 3.3 L (3.5-5.1) g/dL Assessment and Plan Assessment and plan (1) Gestational hypertension: Qualifiers: Trimester: third trimester Qualified Code(s): O13.3 - Gestational [-induced] hypertension without significant proteinuria, third trimester Code(s): O13.9 - Gestational [-induced] hypertension without significant proteinuria, unspecified trimester Status: Acute (2) GBS (group B streptococcus) infection: Code(s): A49.1 - Streptococcal infection, unspecified site Status: Acute (3) Encounter for induction of labor: Code(s): Z34.90 - Encounter for supervision of normal , unspecified, unspecified trimester Status: Acute Plan - Admit to L&D for IOL - Cytotec 25mcg x1, then pitocin augmentation - GBS ppx w/ ampicillin - Continuous monitoring - Anesthesia consult PRN pain - BPs in normal to mild range, labs stable, pt asympatomtic
[2024-02-09] MEDS: miSOPROStol 25 MCG TABLET BY MOUTH (06:48)
[2024-02-09] MEDS: diphenhydrAMINE HCl CAP 25 MG CAPSULE PO (07:54)
--- NOTE | 2024-02-09 08:57 | WPDANESEPP ---
Anes - Eval Pre Procedure Procedure: labor epidural Date/Time: 02/09/24 08:57 Preop Diagnosis: labor pain Pre Op Diagnosis: IOL Patient Data Age: 28 Gender: F Height: 1.75 m Weight: 123 kg Last Vital Signs Temp 36.4 C 02/09/24 06:49 Pulse 82 02/09/24 08:31 BP 127/70 02/09/24 08:31 Pulse Ox 98 02/09/24 06:15 Allergies Allergy/AdvReac Type Severity Reaction Status Date / Time No Known Allergies Allergy Verified 02/04/24 13:56 Home Medications Medication Instructions Recorded Confirmed Type vits no.126-ferrous fum 1 tablet PO DAILY 07/15/23 02/04/24 History 28 mg iron-folic acid 800 mcg tablet (Classic ) aspirin 81 mg tablet,delayed 81 mg PO DAILY 09/17/23 02/04/24 History release ferrous sulfate 325 mg (65 mg 325 mg PO DAILY 12/10/23 02/04/24 History iron) tablet valacyclovir 500 mg tablet 500 mg PO Q12H #90 tabs 01/21/24 02/04/24 Rx (Valtrex) Laboratory Tests 02/09/24 02/09/24 06:19 06:22 WBC 6.2 K/mm3 (4.5-10.0) RBC 4.45 M/mm3 (4.2-5.4) Hgb 11.2 L g/dL (12.0-15.0) Hct 35.1 L % (37.0-47.0) MCV 78.9 L fl (80-100) MCH 25.2 L pg (26-34) MCHC 31.9 L g/dl (32-36) RDW 15.9 H % (11.5-14.5) Plt Count 166 k/mm3 (150-375) MPV 11.7 H fl (7.4-10.4) Immature Gran % (Auto) 0.5 % (0-0.5) Neut % (Auto) 68.9 % (45.5-73.1) Lymph % (Auto) 22.5 % (18.3-44.2) [place] % (Auto) 7.1 % (2.6-8.5) Eos % (Auto) 0.8 % (0-4.4) Baso % (Auto) 0.2 % (0.2-1.2) Lymph # (Auto) 1.40 K/mm3 (0.9-3.2) [place] # (Auto) 0.4 K/mm3 (0.1-0.6) Eos # (Auto) 0.1 K/mm3 (0-0.3) Baso # (Auto) 0.0 K/mm3 (0.0-0.1) Abs Immat Gran (auto) 0.03 K/mm3 (0.00-0.031) Absolute Neuts (auto) 4.3 K/mm3 (1.3-6.7) Absolute Nucleated RBC 0.0 K/mm3 (0.0-0.012) Nucleated RBC % 0.0 % (0.0-0.2) Sodium 134 L mmol/L (137-145) Potassium 3.2 L mmol/L (3.4-5.0) Chloride 108 H mmol/L (98-107) Carbon Dioxide 18 L mmol/L (22-30) Anion Gap 8 mmol/L (8-16) BUN 8 mg/dL (7-17) Creatinine 0.40 L mg/dL (0.7-1.0) Estim Creat Clear Calc 241 ml/min Estimated GFR > 60 (59 - ) Glucose 109 mg/dL (65-110) Uric Acid 3.1 mg/dL (2.5-7.5) Calcium 8.8 mg/dL (8.4-10.2) Total Bilirubin 0.5 mg/dL (0.2-1.3) AST 21 U/L (14-36) ALT 14 U/L (6-35) Alkaline Phosphatase 141 H U/L (38-126) Total Protein 6.0 L g/dL (6.3-8.2) Albumin 3.3 L g/dL (3.5-5.1) RPR Pending Blood Type B Positive Antibody Screen Negative Patient hx anesthesia problems: none Family hx anesthesia problems: none Results Review: All pre-operative results and documents have been reviewed as part of the pre-operative evaluation. [facility] Past Medical History Medical History Anemia Bipolar 1 disorder Encounter for insertion of mirena IUD (06/04/22) mirena iud insertion Encounter for screening examination for sexually transmitted disease IUD migration removed Morbid obesity Family History Family History Father Hypertension Diabetes mellitus Grandparent Diabetes mellitus Hypertension Grandparent Hypertension Social History Social History Years smoked: 5 Smoking status: Former smoker Second hand tobacco smoke exposure: No Alcohol intake: never Substance use: never Substance use type: does not use Do You Feel Safe in your Home?: Yes Lack of Transportation: No Lack of Food: Never True Current Housing: I Have Housing Concerned About Future Housing: No Difficulty Paying Gas/Electric Bills: No Difficulty Paying for Meds: No Currently Unemployed: No Education: High School Diploma/GED Difficulty w/ Childcare or Family Care: No Living arrangements: with family Occupation/Education: unemployed Gender identity (if verbalized by the patient): Female Sexual Orientation (if Verbalized by the Patient): Straight or Heterosexual Spiritual care concerns: No Exam Day of Procedure 02/09/24 08:57 Patient weight: normal Heart: regular rate and rhythm Lungs: clear to auscultation and normal air movement Airway: Mallampati scale class III Neurological: alert and oriented
[2024-02-09] MEDS: OXYTOCIN 30 UNITS/NS 500 ML 30 UNITS/500 ML BAG IV CONT (11:13)
[2024-02-09] MEDS: AMPICILLIN 1 GM/NS 50 ML 1 GM/50 ML BAG IVPB ×3 (11:15→20:16)
--- NOTE | 2024-02-09 12:38 | PM.OBPNLAB ---
Pain Control Date/time seen: 02/09/24 12:38 Pain control: tolerating well Pelvic Exam Dilation (cm): 4 Effacement (%): 50 station: -3 Amniotic membrane status: Ruptured (AROM, clear 1235) Contractions Monitor mode: External Contraction frequency: 2 (-3) Status status: Category l Assessment and Plan Pitocin rate (mU/min): 6 Assessment: induction ongoing Plan: continuous present management
[2024-02-09 15:52] LABS: Rapid Plasma Reagin Non-Reactive (NonReactive)
--- NOTE | 2024-02-09 17:16 | PM.OBPNLAB ---
Pain Control Date/time seen: 02/09/24 17:16 Pain control: epidural Pelvic Exam Dilation (cm): 5 Effacement (%): 80 station: -3 Amniotic membrane status: Ruptured (AROM, clear 1235) Contractions Monitor mode: Internal (placed on this exam) Contraction frequency: 2 (-3) Contraction pattern: Regular Status status: Category l Assessment and Plan Pitocin rate (mU/min): 10 Assessment: induction ongoing Plan: continuous present management
--- NOTE | 2024-02-09 21:25 | PM.OBPRVD ---
OB - Vaginal Delivery Note Procedure Delivery date: 02/09/24 Events: Gestational Hypertension Induction method: Per Misoprostol Protocol (x1) Delivery augmentation: Rupture of Membranes and Pitocin Delivery monitor: External FHT and Internal Uterine Route of delivery: Episiotomy description: None Laceration Description: None Specimen: Yes (placenta) Quantitative Blood Loss (ml): 250 Anesthesia type: Epidural Disposition: Floor Complications: No immediate complications [place] Baby Date of : 02/09/24 Time of : 21:11 Weeks of gestation at delivery: 37 (.1) Infant gender: Female presentation: vertex Placenta delivery description: Expressed Cord Vessel Description: 3 Vessels and Delayed Cord Clamping score one minute: 9 score five minutes: 9 Narrative: Kimberly rapidly progressed to complete dilation with strong desire to push. She pushed for approximately 3 contractions with good maternal effort. She delivered the head over intact perineum. No nuchal cord was palpated. She easily delivered the 's shoulders and body without complication. The infant was immediately placed skin to skin and had spontaneous cry. Delayed cord clamping was performed. The umbilical cord was then doubly clamped and cut. A segment of the cord was collected for cord gases. The remaining cord blood was collected for typing. With Pitocin running and gentle downward traction the cord, the placenta delivered without complications. Bimanual massage was performed and good uterine tone with minimal bleeding was noted. She was examined and no lacerations were identified. She remained firm with minimal bleeding. Sponge, lap, instrument, and needle counts were correct at the end of the procedure. Mom and baby were left bonding in the birthing suite in stable condition. [facility] Delivery Billing Delivery Delivery: Delivery Charge
[2024-02-09] MEDS: OXYTOCIN 30 UNITS/NS 500 ML 30 UNITS/500 ML BAG 125 UNITS IV CONT (21:38)
[2024-02-09] MEDS: BENZOCAINE 20% AER SPR (*SP) 56 GM CAN 1 SPRAY TOPICAL (23:42)
[2024-02-09] MEDS: WITCH HAZEL 40 PADS 1 PAD TOPICAL (23:42)
--- NOTE | 2024-02-10 00:01 | OBPPTRN ---
Patient transferred to post room #284 via wheelchair. Spouse and mother present. Oriented to unit, room, information board, rooming in, admission packet and security measures. Patient verbalizes understanding.
[2024-02-10 00:05] VITALS: BP 134/65; PULSE 75; RESP 18; TEMP 36.8; O2SAT 98
[2024-02-10] MEDS: IBUPROFEN 600 MG TABLET PO ×3 (00:11→18:30)
[2024-02-10 03:47] VITALS: BP 116/60; PULSE 72; RESP 18; TEMP 36.3; O2SAT 98
[2024-02-10 04:49] LABS: Hematocrit 33.1 % (37.0-47.0); Hemoglobin 10.3 g/dL (12.0-15.0)
--- NOTE | 2024-02-10 07:33 | WPDANLDPN2 ---
Anes-Prog Note L&D Date/Time: 02/10/24 07:33 Comfortable throughout: labor and delivery Neuraxial method: epidural Epidural/Spinal procedure site: clean & non-tender Neuro status: Neuro function grossly intact. Cardiovascular status: normal Respiratory status: normal Airway patency: baseline Mental status: baseline Post-Op hydration status: normal Vital Signs: Last Vital Signs Temp 36.3 C L 02/10/24 03:47 Pulse 72 02/10/24 03:47 Resp 18 02/10/24 03:47 BP 116/60 02/10/24 03:47 Pulse Ox 98 02/10/24 03:47 O2 Del Method Room Air 02/10/24 00:05 Pain score (VAS): 2/10 I/O: Intake & Output 02/09/24 02/09/24 02/10/24 15:59 23:59 07:59 Intake Total 1050 50 Output Total 800 Balance 1050 50 -800 Post-procedural complaints: none Patient feedback: Patient satisfied with anesthetic care.
[2024-02-10 07:45] VITALS: BP 118/68; PULSE 76; RESP 18; TEMP 37.1; O2SAT 100
[2024-02-10] MEDS: DOCUSATE SODIUM 100 MG CAPSULE PO (08:39)
--- NOTE | 2024-02-10 12:14 | PM.OBPNVD ---
OB - PN: Subj Subjective Date/time seen: 02/10/24 12:14 Narrative: PPD#1 Kimberly reports doing well today. Her bleeding is family resource specialist. Her pain is controlled. She is tolerating regular diet, voiding, passing gas, and ambulating without issues. She is bottle feeding. OB - PN: Obj Data Labs 02/10/24 04:10 02/09/24 06:22 Labs: Laboratory Results - last 24 hr 02/09/24 02/10/24 06:19 04:10 Hgb 10.3 L Hct 33.1 L RPR Non-reactive OB - PN A/P Assessment and Plan (1) Normal vaginal delivery of third : Code(s): O80 - Encounter for full-term uncomplicated delivery Status: Acute Plan day: 1 Plan: routine care and discharge home (tomorrow AM) Comments: - Pelvic rest; take meds as prescribed - ER return precautions: fever, n/v/abd pain, bleeding, HTN Time Spent With Patient Time: Total time spent is greater than 50% in coordination of care (as documented) at patient's floor/unit and/or counseling patient: Review of Systems Constitutional: Constitutional: Denies chills, Denies fever(s) and Denies headache(s) Eyes: Eyes: Denies change in vision ENT: Denies dizziness and Denies headache(s) Cardiovascular: Cardiovascular: Denies chest pain, Denies palpitations and Denies dyspnea Respiratory: Respiratory: Denies cough and Denies dyspnea Gastrointestinal: Gastrointestinal: Denies nausea and Denies vomiting Neurologic: Denies dizziness and Denies headache(s) Endocrine: Endocrine: Denies palpitations Exam Const: General: cooperative, comfortable and no acute distress Orientation/consciousness: patient oriented x3 Resp: Effort & Inspection: normal respiratory effort Auscultation: clear to auscultation bilaterally Cardio: Rate: regular rate GI: Inspection: non-distended GI Palp: No abdominal tenderness and Yes Soft to palpation Auscultation: normal bowel sounds : Other: fundus firm Skin: General skin exam: normal color Neuro: General: patient oriented x3 Extrem: General: normal to inspection Psych: Appearance: grossly normal Affect: normal affect Attitude: cooperative
[2024-02-10 12:32] VITALS: BP 129/62; PULSE 71; RESP 16; TEMP 36.8; O2SAT 99
--- NOTE | 2024-02-10 12:57 | P.DS_ITS ---
DS: Admitting Diagnosis Discharge Date 02/11/24 Admitting Diagnosis Induction of labor GHTN DS: Discharge Diagnosis Discharge Diagnosis (1) Normal vaginal delivery of third : Code(s): O80 - Encounter for full-term uncomplicated delivery Status: Acute OB - DS: Summary OB Procedures : NST and PIH Mgmt OB Procedures Intrapartum: Spontaneous Vag Delivery OB Procedures: : None Peripartum Data Infant Delivery Method: Natural Vaginal Laceration Description: None Episiotomy description: None complications: none [place] 1: Gender: Female Disposition of : home Status at Discharge Functional status at discharge: independent ambulation Overall status at discharge: patient is back to baseline Time Spent with Patient Time attestation: Total time spent providing and/or coordinating discharge services: Exam Const: General: cooperative, healthy appearing, comfortable, no acute distress and obese Orientation/consciousness: patient oriented x3 Resp: Effort & Inspection: normal respiratory effort Auscultation: clear to auscultation bilaterally Cardio: Rate: regular rate GI: Inspection: non-distended GI Palp: No abdominal tenderness and Yes Soft to palpation Auscultation: normal bowel sounds : Other: fundus firm Skin: General skin exam: normal color Neuro: General: patient oriented x3 Extrem: General: normal to inspection Psych: Appearance: grossly normal Affect: normal affect Attitude: cooperative DS: Data Data Completed and Pending Labs on day of discharge: Labs from last 24 hours 02/10/24 02/09/24 04:10 06:19 Hgb 10.3 L Hct 33.1 L RPR Non-reactive Discharge Plan Discharge Attending physician on discharge: Hina Granados Discharging Clinician: Hina Granados Anticipated Discharge Date/Time: 02/11/24 10:00 Patient Disposition: Home, Self-Care Activity: may shower and pelvic rest Diet: as tolerated and regular Patient Instructions: Vaginal Delivery (DC) Stand Alone Forms: General Discharge Information Follow-up/Referrals: Hina Granados MD [Physician] - 4 Weeks Discharge Medications: New acetaminophen 325 mg Tablet 650 mg PO Q6H PRN (Reason: Mild Pain (1-3) Or Headache) Qty: 100 0RF docusate sodium 100 mg Capsule 100 mg PO BID PRN (Reason: Constipation) Qty: 100 0RF ibuprofen 600 mg Tablet 600 mg PO Q6H PRN (Reason: Cramping) Qty: 50 0RF Continued Classic 28 mg iron- 800 mcg tablet 1 tablet PO DAILY ferrous sulfate 325 mg (65 mg iron) tablet 325 mg PO DAILY Discontinued aspirin 81 mg tablet,delayed release (DR/EC) 81 mg PO DAILY valacyclovir [Valtrex] 500 mg tablet 500 mg PO Q12H Qty: 90 0RF Date of admission: 02/09/24 05:52 Primary Care Provider: Jonas Ortega Admitting Provider: Hina Granados Attending physician on admission: Hina Granados Condition: Stable
[2024-02-10 17:00] VITALS: BP 116/60; PULSE 68
[2024-02-10 19:14] VITALS: BP 126/73; PULSE 66; RESP 18; TEMP 36.6; O2SAT 99
[2024-02-11] VITALS: BP 124/65
[2024-02-11 05:06] VITALS: BP 123/60
--- NOTE | 2024-02-11 08:15 | PC.NURSE ---
PT introductions made and plan of care discussed per post , pain management, bottle feeding, daily care activities and pending discharge to home. PT and fob both recipients of such instructions and no barriers to learning identified at this time. PT received such instructions per one to one discussion, mom baby care guide and demonstrations this shift. PT verbalized understanding of such care.
[2024-02-11 08:50] VITALS: BP 121/79; PULSE 70; RESP 16; TEMP 36.6; O2SAT 99
[2024-02-11] MEDS: ACETAMINOPHEN 325 MG TABLET 650 MG PO (10:29)
[2024-02-11 10:30] VITALS: PULSE 70; RESP 16; O2SAT 99
[2024-02-11] MEDS: DOCUSATE SODIUM 100 MG CAPSULE PO (10:30)
[2024-02-11] MEDS: IBUPROFEN 600 MG TABLET PO (10:30)
--- NOTE | 2024-02-11 11:00 | PC.NURSE ---
PT received discharge instructions per protocol and verbalized understanding of such care. Patient was given the opportunity to view the discharge video [facility], The First Two Weeks and to ask questions. Patient declined viewing the video and has been given the mother/baby guide for home reference.
--- NOTE | 2024-02-11 11:33 | PC.NURSE ---
PT discharged to home ambulatory accompanied by fob and infant and taken to waiting car. Follow up appts confirmed
== END 2024-02-11 11:33 | disposition home or self-care (01) | DRG 560 ==
LOC: ANHLDR 05:58 → ANHOB2 02-10 00:02
PROVIDERS: Admitting Provider Obstetrics & Gynecology; PCP Family Medicine; Visit Provider Obstetrics & Gynecology
DX: O13.4 Gestational [pregnancy-induced] hypertension without significant proteinuria, complicating childbirth (principal); Z37.0 Single live birth; Z3A.37 37 weeks gestation of pregnancy; O99.892 Other specified diseases and conditions complicating childbirth; Z87.59 Personal history of other complications of pregnancy, childbirth and the puerperium; O99.824 Streptococcus B carrier state complicating childbirth; O99.214 Obesity complicating childbirth; O98.32 Other infections with a predominantly sexual mode of transmission complicating childbirth; A60.09 Herpesviral infection of other urogenital tract; E66.01 Morbid (severe) obesity due to excess calories
CPT/HCPCS: 36415; 80053; 84550; 85014; 85018; 85025; 86592; 86850; 86900; 86901; 88307; A9270; J0290; J2590; J2795; J7120